=== PATIENT | female | born 1960 | race Caucasian/White ===

== ENCOUNTER 2018-04-05 12:21 | Emergency (ER) | payer BC ==
[2018-04-05 13:41] VITALS: BP 142/77
--- NOTE | 2018-04-10 11:35 | UC ---
Complaint Female HPI - HPI Summary HPI Summary: Urinary urgency, discomfort onset yesterday. Pt saw blood in urine yesterday. Pt had right groin u/s yesterday morning. had noticeable blood in her urine once after procedure then done, has had some dysuria but seems to have subsided - History Of Current Complaint Chief Complaint: UCGU Stated Complaint: URINARY Time Seen by Provider: 04/05/18 13:21 Hx Obtained From: Patient Hx Last Menstrual Period: yrs ?: No Onset/Duration: Lasting Days Timing: Lasting Days Severity Initially: Mild Severity Currently: None Pain Intensity: 0 Pain Scale Used: 0-10 Numeric Character: Burning Aggravating Factor(s): Urination - Allergies/Home Medications Allergies/Adverse Reactions: Allergies Allergy/AdvReac Type Severity Reaction Status Date / Time Sulfa (Sulfonamide Allergy itching, Verified 04/06/18 15:12 Antibiotics) hives, SOB, redness Home Medications: Home Medications Flecainide TAB* [Tambocor TAB*] 100 mg PO BID 04/05/18 [History Confirmed ] Pro-Air Inhaler 2 puff INH BID 04/05/18 [History Confirmed 04/05/18] Uricalm 2 tab PO Q8H PRN 04/05/18 [History Confirmed 04/05/18] PMH/Surg Hx/FS Hx/Imm Hx Previously Healthy: Yes - Surgical History Surgical History: Yes Surgery Procedure, Year, and Place: Cardioversion for A Fib, 2013, [facility]; Bilateral Carpal Tunnel, 2013, [facility]; Tubal Ligation, 1979, [facility]; T&A, 1966, [facility] - Family History Known Family History: Positive: Hypertension - Social History Alcohol Use: Rare Substance Use Type: None Smoking Status (MU): Never Smoked Tobacco Have You Smoked in the Last Year: No - Immunization History Most Recent Influenza Vaccination: April 2015 Review of Systems All Other Systems Reviewed And Are Negative: Yes Constitutional: Positive: Negative Skin: Positive: Negative Eyes: Positive: Negative ENT: Positive: Negative Respiratory: Positive: Negative Cardiovascular: Positive: Negative Gastrointestinal: Positive: Negative Genitourinary: Positive: Dysuria, Hematuria Motor: Positive: Negative Neurovascular: Positive: Negative Musculoskeletal: Positive: Negative Neurological: Positive: Negative Psychological: Positive: Negative Is Patient Immunocompromised?: No Physical Exam Triage Information Reviewed: Yes Appearance: Well-Appearing, No Pain Distress, Obese Vital Signs: Initial Vital Signs Temp 98.6 F 04/05/18 13:32 Pulse 79 04/05/18 13:32 Resp 18 04/05/18 13:32 BP 142/77 04/05/18 13:32 Pulse Ox 96 04/05/18 13:32 Vital Signs Reviewed: Yes Eye Exam: Normal ENT Exam: Normal Dental Exam: Normal Neck exam: Normal Neck: Positive: Supple, Nontender, No Lymphadenopathy Respiratory Exam: Normal Cardiovascular Exam: Normal Cardiovascular: Positive: RRR, No Murmur, Pulses Normal Abdominal Exam: Normal Abdomen Description: Positive: Nontender, No Organomegaly, Soft Bowel Sounds: Positive: Present Musculoskeletal Exam: Normal Neurological Exam: Normal Psychological Exam: Normal Skin Exam: Normal Complaint Female Dx - Course Course Of Treatment: hx obtained, exm performed, meds reviewed, ua non able to complete due to AZO use, urine culture sent. patient is currently asymptomatic, talked with her and she is in agreement to wait for results of culture prior to treatment. - Differential Dx/Diagnosis Provider Diagnoses: dysuria Discharge - Sign-Out/Discharge Documenting (check all that apply): Patient Departure All imaging exams completed and their final reports reviewed: No Studies - Discharge Plan Condition: Stable Disposition: HOME Patient Education Materials: Dysuria (ED) Referrals: Maribel Sargent MD [Primary Care Provider] - Additional Instructions: 1. increase clear fluid intake and take the cranberry pills hourly for the next 12 hours 2. Your urine culture should be resulted in the next 48 hours, if there is a need to treat we will call you. 3. Follow up if you develop any other symptoms - Billing Disposition and Condition Condition: STABLE Disposition: Home
== END 2018-04-05 14:22 | disposition home or self-care (01) ==
LOC: UCCORT 12:21
DX: R30.0 Dysuria (principal); R31.9 Hematuria, unspecified; Z88.2 Allergy status to sulfonamides
CPT/HCPCS: 87077; 87086; 87186; 99211; G0463

== ENCOUNTER 2018-04-06 12:58 | Emergency (ER) | payer BC ==
[2018-04-06 15:11] VITALS: BP 150/80
--- NOTE | 2018-04-06 15:22 | UC ---
Complaint Female HPI - HPI Summary HPI Summary: Pt presents with c/o low back pain, dysuria and pelvic pressure. Pt c/o feeling as though she needs to have a BM to relieve pressure. - History Of Current Complaint Stated Complaint: UPSET STOMACH Time Seen by Provider: 04/06/18 14:44 Hx Obtained From: Patient Hx Last Menstrual Period: yrs ?: No Onset/Duration: Sudden Onset, Lasting Days, Still Present Timing: Constant Severity Initially: Mild Severity Currently: Moderate Pain Intensity: 6 Character: Dull, Burning Aggravating Factor(s): Urination Alleviating Factor(s): Nothing Associated Signs And Symptoms: Positive: Back Pain - Risk Factors Ectopic Risk Factor: Negative Ovarian Torsion Risk Factor: Negative - Allergies/Home Medications Allergies/Adverse Reactions: Allergies Allergy/AdvReac Type Severity Reaction Status Date / Time Sulfa (Sulfonamide Allergy itching, Verified 04/06/18 15:12 Antibiotics) hives, SOB, redness PMH/Surg Hx/FS Hx/Imm Hx Previously Healthy: Yes Cardiovascular History: Cardiac Disease, Hypertension Respiratory History: COPD - Surgical History Surgical History: Yes Surgery Procedure, Year, and Place: Cardioversion for A Fib, 2013, [facility]; Bilateral Carpal Tunnel, 2013, [facility]; Tubal Ligation, 1979, [facility]; T&A, 1966, [facility] - Family History Known Family History: Positive: Cardiac Disease - Social History Occupation: Employed Full-time Lives: With Family Alcohol Use: Rare Substance Use Type: None Smoking Status (MU): Never Smoked Tobacco Have You Smoked in the Last Year: No - Immunization History Most Recent Influenza Vaccination: April 2015 Review of Systems Constitutional: Negative Skin: Negative Eyes: Negative ENT: Negative Respiratory: Negative Cardiovascular: Negative Gastrointestinal: Abdominal Pain Genitourinary: Dysuria, Frequency, Urgency Motor: Negative Neurovascular: Negative Musculoskeletal: Negative Neurological: Negative Psychological: Negative Is Patient Immunocompromised?: No All Other Systems Reviewed And Are Negative: Yes Physical Exam Triage Information Reviewed: Yes Appearance: Obese Vital Signs: Initial Vital Signs Temp 99.2 F 04/06/18 15:09 Pulse 84 04/06/18 15:09 Resp 18 04/06/18 15:09 BP 150/80 04/06/18 15:09 Pulse Ox 96 04/06/18 15:09 Vital Signs Reviewed: Yes Eye Exam: Normal ENT Exam: Normal Dental Exam: Normal Neck exam: Normal Respiratory Exam: Normal Cardiovascular Exam: Normal Abdominal Exam: Normal Abdomen Description: Positive: Nontender Musculoskeletal Exam: Normal Neurological Exam: Normal Psychological Exam: Normal Skin Exam: Normal Complaint Female Dx - Course Course Of Treatment: I discussed my concern for kidney stone and the lack of CT testing today. Pt verbalized understanding and agreed to plan of care. - Differential Dx/Diagnosis Differential Diagnosis/HQI/PQRI: Urinary Tract Infection, Other - kidney stone Provider Diagnoses: UTI Discharge - Sign-Out/Discharge Documenting (check all that apply): Patient Departure All imaging exams completed and their final reports reviewed: No Studies - Discharge Plan Condition: Stable Disposition: HOME Prescriptions: Nitrofurantoin Monohyd/M-Cryst [Macrobid 100 mg Capsule] 100 mg PO Q12H #14 cap Patient Education Materials: Urinary Tract Infection in Women (DC) Referrals: Maribel Sargent MD [Primary Care Provider] - (as soon as possible) - Billing Disposition and Condition Condition: STABLE Disposition: Home
== END 2018-04-06 15:30 | disposition home or self-care (01) ==
LOC: UCCORT 12:58
DX: N39.0 Urinary tract infection, site not specified (principal); J44.9 Chronic obstructive pulmonary disease, unspecified; Z88.2 Allergy status to sulfonamides
CPT/HCPCS: 81003; 87077; 87086; 87186; 99212; G0463

== ENCOUNTER 2018-10-23 08:17 | Emergency (ER) | payer BC ==
[2018-10-23 08:35] VITALS: BP 156/77
--- NOTE | 2018-10-23 09:22 | ED ---
GI/ HPI - HPI Summary HPI Summary: 58 yr old female with the complaint of dysuria, increased frequency, and hesitancy. Onset over the past 24 hours. No fever or chills. No back pain. No abdominal pain. She has not had any vomiting. Symptoms are moderate. - History of Current Complaint Chief Complaint: UCGU Time Seen by Provider: 10/23/18 08:43 Stated Complaint: URINARY Hx Last Menstrual Period: post menopausal Pain Intensity: 0 - Allergy/Home Medications Allergies/Adverse Reactions: Allergies Allergy/AdvReac Type Severity Reaction Status Date / Time Sulfa (Sulfonamide Allergy itching, Verified 10/23/18 08:36 Antibiotics) hives, SOB, redness PMH/Surg Hx/FS Hx/Imm Hx Cardiovascular History: Reports: Hx Hypertension, Other Cardiovascular Problems/ Disorders - 02/24/14 CARDIOVERTED, NO RECURRENCE Comment Only: Hx Valvular Heart Disease - FOLLOWED BY DR DEL ANGLE Respiratory History: Reports: Hx Asthma, Hx Sleep Apnea - BEING TESTED GI History: Reports: Hx Gastroesophageal Reflux Disease - Hx OF, NO RECENT Sx, NO MEDS Musculoskeletal History: Reports: Hx Arthritis - HANDS, HIPS, KNEES, LOW BACK, Hx Tendonitis - Hx OF, ARM, MANY YEARS AGO Sensory History: Reports: Hx Contacts or Glasses - GLASSES Opthamlomology History: Reports: Hx Contacts or Glasses - GLASSES - Surgical History Surgery Procedure, Year, and Place: Cardioversion for A Fib, 2013, [facility]; Bilateral Carpal Tunnel, 2013, [facility]; Tubal Ligation, 1979, [facility]; T&A, 1966, [facility] Hx Anesthesia Reactions: No Infectious Disease History: No Infectious Disease History: Denies: Hx Clostridium Difficile, Hx Hepatitis, Hx Human Immunodeficiency Virus (HIV), Hx of Known/Suspected MRSA, Hx Shingles, Hx Tuberculosis, Hx Known/ Suspected VRE, Hx Known/Suspected VRSA, History Other Infectious Disease, Traveled Outside the [place] in Last 30 Days - Family History Known Family History: Positive: Cardiac Disease - Social History Occupation: Employed Full-time Alcohol Use: Rare Substance Use Type: Reports: None Smoking Status (MU): Never Smoked Tobacco Have You Smoked in the Last Year: No Review of Systems Constitutional: Negative Negative: Vomiting, Nausea Positive: dysuria, frequency. Negative: discharge, flank pain, pain All Other Systems Reviewed And Are Negative: Yes Physical Exam Triage Information Reviewed: Yes Vital Signs On Initial Exam: Initial Vitals Temp Pulse Resp BP Pulse Ox 98.2 F 69 16 156/77 95 10/23/18 08:30 10/23/18 08:30 10/23/18 08:30 10/23/18 08:30 10/23/18 08:30 Vital Signs Reviewed: Yes Appearance: Positive: Well-Appearing, No Pain Distress Skin: Positive: Warm, Skin Color Reflects Adequate Perfusion Head/Face: Positive: Normal Head/Face Inspection Eyes: Positive: EOMI, RANDAL ENT: Positive: Normal ENT inspection Neck: Positive: Nontender Respiratory/Lung Sounds: Positive: Clear to Auscultation, Breath Sounds Present Cardiovascular: Positive: RRR. Negative: Murmur Abdomen Description: Negative: CVA Tenderness (R), CVA Tenderness (L) Musculoskeletal: Positive: Strength/ROM Intact Neurological: Positive: Sensory/Motor Intact, Alert, Oriented to Person Place, Time, CN Intact II-III Psychiatric: Positive: Normal Diagnostics - Vital Signs Vital Signs Temp Pulse Resp BP Pulse Ox 10/23/18 08:30 98.2 F 69 16 156/77 95 - Laboratory Lab Results: Lab Results 10/23/18 Range/Units 08:47 POC Urine Color Lena POC Urine Clarity Cloudy POC Urine pH 6.0 (5-9) POC Ur Specif Hernando >= 1.030 (1.010-1.030) POC Urine Protein 2+ A (Negative) POC Ur Glucose (UA) Negative (Negative) POC Urine Ketones Negative (Negative) POC Urine Blood 3+ A (Negative) POC Urine Nitrite Positive A (Negative) POC Urine Bilirubin Negative (Negative) POC Urine Urobilinogen 0.2 (Negative) POC U Leukocyte Esteras 2+ A (Negative) Lab Statement: Any lab studies that have been ordered have been reviewed, and results considered in the medical decision making process. GIGU Course/Dx - Course Course Of Treatment: 58 yr old with UTI. DC home. Keflex - Diagnoses Provider Diagnoses: UTI (urinary tract infection) Discharge - Sign-Out/Discharge Documenting (check all that apply): Patient Departure All imaging exams completed and their final reports reviewed: No Studies - Discharge Plan Condition: Good Disposition: HOME Prescriptions: Cephalexin CAP* [Keflex CAP*] 500 mg PO TID #30 cap Patient Education Materials: Urinary Tract Infection in Women (DC), Hypertension (ED) Referrals: Maribel Sargent MD [Primary Care Provider] - 2 Days - Billing Disposition and Condition Condition: GOOD Disposition: Home
== END 2018-10-23 09:25 | disposition home or self-care (01) ==
LOC: UCCORT 08:17
DX: N39.0 Urinary tract infection, site not specified (principal); I10 Essential (primary) hypertension; Z88.2 Allergy status to sulfonamides
CPT/HCPCS: 81003; 87077; 87086; 87186; 99212; G0463